=== PATIENT | female | born 1970 | race Caucasian/White ===

== ENCOUNTER 2017-04-16 15:51 | Emergency (ER) | payer MEDICAID ==
[~2017-04-16] VITALS: Ht 152.4 cm; Wt 64.9 kg
[~2017-04-16 15:51] MED LIST: BACTRIM DS 8001 TAB PO; KLONOPIN2 MG PO; MEDROL 4MG. DOSE4 MG PO; MOTRIN 400MG.400 MG PO; NORFLEX100 MG PO; VOLTAREN75 MG PO; ZOLOFT25 MG PO
--- OUTSIDE RECORDS SUMMARY | 2017-04-16 16:07 | External Medical Summary Rpt | CCD ---
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 CI CY W D LI LL QU C ID HY 00 02 03 0 60 15 ME [address] 18 -0 -3 0. D 13 NO ti OX 50 5- 0- 00 CA 60 LD ve YZ 67 20 20 0 RE 91 IN 40 15 15 RI E 5 PH CH PA AR AR M MA D 25 CY W MG LL C CA P AC 00 10 03 0 35 5 ME 11 AR Ac ID 90 -1 -2 50 D 12 NO ti 47 0- 6- .0 CA 28 LD ve GO 72 20 20 00 RE 52 NE 71 14 15 RI 4 PH CH AN AR AR TA MA D CI CY W D LI LL QU C ID ID 59 03 03 0 85 30 ME 11 AR Ac OA 31 -2 -2 .0 D 12 NO ti IR 00 5- 5- 00 CA 07 LD ve 57 20 20 RE 20 HF 92 15 15 RI A 2 PH CH 90 AR AR MA D MC CY W G IN LL [place] C LE R AC 00 10 03 0 35 5 ME 11 AR Ac ID 90 -1 -2 50 D 11 NO ti 47 0- 3- .0 CA 23 LD ve GO 72 20 20 00 RE 04 NE 71 14 15 RI 4 PH CH AN AR AR TA MA D CI CY W D LI LL QU C ID GA 53 12 03 0 60 30 ME 11 AR Ac BA 74 -1 -2 0. D 09 NO ti PE 60 3- 1- 00 CA 96 LD ve NT 10 20 20 0 RE 16 IN 10 14 15 RI 5 PH CH 10 AR AR 0 MA D MG CY W CA LL PS C UL E LO 45 02 03 0 30 30 ME 11 AR Ac RA 80 -1 -1 0. D 09 NO ti TA 20 9- 9- 00 CA 82 LD ve DI 65 20 20 0 RE 79 NE 08 15 15 RI 7 PH CH 10 AR AR MA D MG CY W TA LL BL C ET BU 00 09 03 0 90 30 ME 11 AR Ac SP 59 -1 -1 0. D 09 NO ti IR 10 1- 9- 00 CA 82 LD ve ON 71 20 20 0 RE 78 E 81 14 15 RI HC 8 PH CH L AR AR 15 MA D CY W MG LL TA C BL ET ID 00 02 03 0 30 5 ME 11 AR Ac OM 59 -1 -1 0. D 09 NO ti ET 15 1- 8- 00 CA 96 LD ve B[place]O 30 20 20 0 RE 15 ZI 71 15 15 RI NE 0 PH CH AR AR 25 MA D CY W MG LL TA C BL ET OM 68 11 03 0 30 30 ME 11 AR Ac EP 46 -0 -1 0. D 08 NO ti RA 20 1- 6- 00 CA 90 LD ve ZO 23 20 20 0 RE 87 LE 11 14 15 RI [address] AR AR MA D 20 CY W MG LL C CA PS UL E QU 16 03 03 0 30 30 ME 11 AR Ac ET 72 -1 -1 0. D 08 NO ti IA 90 2- 6- 00 CA 21 LD ve PI 14 20 20 0 RE 27 NE 81 15 15 RI 7 PH CH FU AR AR MA MA D RA CY W TE LL 20 C 0 MG TA B HY 00 02 03 0 60 15 ME [address] 18 -0 -1 0. D 08 NO ti OX 50 5- 4- 00 CA 90 LD ve YZ 67 20 20 0 RE 85 IN 40 15 15 RI E 5 PH CH PA AR AR M MA D 25 CY W MG LL C CA P QU 16 03 03 0 50 5 ME 11 AR Ac ET 72 -1 -1 .0 D 08 NO ti IA 90 2- 2- 00 CA 21 LD ve PI 14 20 20 RE 24 NE 61 15 15 RI 7 PH CH FU AR AR MA MA D RA CY W TE LL 50 C MG TA B VE 68 02 03 0 90 30 ME 11 AR Ac NL 38 -1 -1 0. D 07 NO ti AF 20 2- 2- 00 CA 65 LD ve AX 02 20 20 0 RE 19 IN 10 15 15 RI E 1 PH CH HC AR AR L MA D 75 CY W MG LL C TA BL ET QU 16 02 03 0 30 30 ME 11 AR Ac ET 72 -1 -0 0. D 06 NO ti IA 90 2- 9- 00 CA 48 LD ve PI 14 20 20 0 RE 56 NE 70 15 15 RI 1 PH CH FU AR AR MA MA D RA CY W TE LL 10 C 0 MG TA B ID 23 09 03 0 90 30 ME 11 AR Ac OP 15 -1 -0 0. D 05 NO ti RA 50 1- 9- 00 CA 74 LD ve NO 11 20 20 0 RE 49 LO 11 14 15 RI L 0 PH CH 20 AR AR MA D MG CY W TA LL BL C ET ID 00 09 03 0 60 30 ME 11 AR Ac AZ 37 -1 -0 0. D 05 NO ti OS 81 1- 7- 00 CA 59 LD ve IN 10 20 20 0 RE 21 1 10 14 15 RI 1 PH CH MG AR AR MA D CA CY W PS UL LL E C AC 00 10 03 0 35 5 ME 11 AR Ac ID 90 -1 -0 50 D 06 NO ti 47 0- 7- .0 CA 08 LD ve GO 72 20 20 00 RE 70 NE 71 14 15 RI 4 PH CH AN AR AR TA MA D CI CY W D LI LL QU C ID IB 55 01 02 0 30 15 ME 11 AR Ac UP 11 -0 -2 0. D 03 NO ti RO 10 6- 7- 00 CA 50 LD ve FE 68 20 20 0 RE 61 N 20 15 15 RI 40 5 PH CH 0 AR AR MG MA D CY W TA BL LL ET C HY 00 02 02 0 60 15 ME [address] 18 -0 -2 0. D 03 NO ti OX 50 5- 7- 00 CA 50 LD ve YZ 67 20 20 0 RE 60 IN 40 15 15 RI E 5 PH CH PA AR AR M MA D 25 CY W MG LL C CA P GA 53 12 02 0 60 30 ME 11 AR Ac BA 74 -1 -2 0. D 02 NO ti PE 60 3- 5- 00 CA 15 LD ve NT 10 20 20 0 RE 10 IN 10 14 15 RI 5 PH CH 10 AR AR 0 MA D MG CY W CA LL PS C UL E DI 00 02 02 0 30 5 ME 11 AR Ac PH 60 -2 -2 0. D 00 NO ti EN 33 0- 0- 00 CA 89 LD ve HY 33 20 [address] 93 15 15 RI AM 2 PH CH IN AR AR E MA D 25 CY W MG LL C CA PS UL E OM 55 11 02 0 30 30 ME 11 AR Ac EP 11 -0 -1 0. D 00 NO ti RA 10 1- 9- 00 CA 73 LD ve ZO 15 20 20 0 RE 80 LE 81 14 15 RI [address] AR AR MA D 20 CY W MG LL C CA PS UL E LO 45 02 02 0 30 30 ME 11 AR Ac RA 80 -1 -1 0. D 00 NO ti TA 20 9- 9- 00 CA 59 LD ve DI 65 20 20 0 RE 13 NE 08 15 15 RI 7 PH CH 10 AR AR MA D MG CY W TA LL BL C ET BU 00 09 02 0 90 30 ME 10 AR Ac SP 59 -1 -1 0. D 99 NO ti IR 10 1- 7- 00 CA 74 LD ve ON 71 20 20 0 RE 44 E 81 14 15 RI HC 8 PH CH L AR AR 15 MA D CY W MG LL TA C BL ET QU 16 02 02 0 30 30 ME 10 AR Ac ET 72 -1 -1 0. D 98 NO ti IA 90 2- 3- 00 CA 73 LD ve PI 14 20 20 0 RE 30 NE 70 15 15 RI 1 PH CH FU AR AR MA MA D RA CY W TE LL 10 C 0 MG TA B HY 00 02 02 0 60 15 ME [address] 18 -0 -1 0. D 96 NO ti OX 50 5- 2- 00 CA 54 LD ve YZ 67 20 20 0 RE 84 IN 40 15 15 RI E 5 PH CH PA AR AR M MA D 25 CY W MG LL C CA P VE 68 02 02 0 90 30 ME 10 AR Ac NL 38 -1 -1 0. D 98 NO ti AF 20 2- 2- 00 CA 73 LD ve AX 02 20 20 0 RE 28 IN 10 15 15 RI E 1 PH CH HC AR AR L MA D 75 CY W MG LL C TA BL ET VE 68 12 02 0 60 30 ME 10 AR Ac NL 38 -1 -1 0. D 97 NO ti AF 20 1- 1- 00 CA 81 LD ve AX 02 20 20 0 RE 80 IN 10 14 15 RI E 1 PH CH HC AR AR L MA D 75 CY W MG LL C TA BL ET ID 00 02 02 0 30 5 ME 10 AR Ac OM 59 -1 -1 0. D 98 NO ti ET 15 1- 1- 00 CA 33 LD ve [place] 30 20 20 0 RE 56 ZI 71 15 15 RI NE 0 PH CH AR AR 25 MA D CY W MG LL TA C BL ET AZ 00 02 02 0 60 5 ME 10 AR Ac IT 78 -1 -1 .0 D 98 NO ti HR 11 1- 1- 00 CA 30 LD ve OM 49 20 20 RE 28 YC 66 15 15 RI IN 8 PH CH AR AR 25 MA D 0 CY W MG LL TA C BL ET AC 00 10 02 0 35 5 ME 10 AR Ac ID 90 -1 -0 50 D 97 NO ti 47 0- 9- .0 CA 60 LD ve GO 72 20 20 00 RE 73 NE 71 14 15 RI 4 PH CH AN AR AR TA MA D CI CY W D LI LL QU C ID ID 23 09 02 0 90 30 ME 10 AR Ac OP 15 -1 -0 0. D 96 NO ti RA 50 1- 7- 00 CA 76 LD ve NO 11 20 20 0 RE 81 LO 11 14 15 RI L 0 PH CH 20 AR AR MA D MG CY W TA LL BL C ET ID 00 09 02 0 60 30 ME 10 AR Ac AZ 37 -1 -0 0. D 96 NO ti OS 81 1- 6- 00 CA 41 LD ve IN 10 20 20 0 RE 95 1 10 14 15 RI 1 PH CH MG AR AR MA D CA CY W PS UL LL E C HY 00 02 02 0 30 15 ME [address] 18 -0 -0 0. D 95 NO ti OX 50 3- 3- 00 CA 91 LD ve YZ 67 20 20 0 RE 10 IN 40 15 15 RI E 5 PH CH PA AR AR M MA D 25 CY W MG LL C CA P AC 00 10 01 0 35 5 ME 10 AR Ac ID 90 -1 -3 50 D 95 NO ti 47 0- 0- .0 CA 08 LD ve GO 72 20 20 00 RE 39 NE 71 14 15 RI 4 PH CH AN AR AR TA MA D CI CY W D LI LL QU C ID RO 00 01 01 0 47 30 ME 10 AR Ac BA 90 -2 -2 30 D 94 NO ti FE 40 9- 9- .0 CA 19 LD ve N 06 20 20 00 RE 82 10 11 15 15 RI 0 6 PH CH MG AR AR /5 MA D CY W ML LL SY C RU P GA 53 12 01 0 60 30 ME 10 AR Ac BA 74 -1 -2 0. D 93 NO ti PE 60 3- 7- 00 CA 27 LD ve NT 10 20 20 0 RE 00 IN 10 14 15 RI 5 PH CH 10 AR AR 0 MA D MG CY W CA LL PS C UL E OM 55 11 01 0 30 30 ME 10 AR Ac EP 11 -0 -2 0. D 92 NO ti RA 10 1- 6- 00 CA 53 LD ve ZO 15 20 20 0 RE 64 LE 81 14 15 RI [address] AR AR MA D 20 CY W MG LL C CA PS UL E HY 00 10 01 0 30 10 ME [address] 18 -1 -2 0. D 93 NO ti OX 50 5- 6- 00 CA 32 LD ve YZ 67 20 20 0 RE 66 IN 40 14 15 RI E 5 PH CH PA AR AR M MA D 25 CY W MG LL C CA P AC 00 10 01 0 35 5 ME 10 AR Ac ID 90 -1 -2 50 D 92 NO ti 47 0- 2- .0 CA 14 LD ve GO 72 20 20 00 RE 07 NE 71 14 15 RI 4 PH CH AN AR AR TA MA D CI CY W D LI LL QU C ID AC 00 10 01 0 35 5 ME 10 AR Ac ID 90 -1 -1 50 D 90 NO ti 47 0- 9- .0 CA 94 LD ve GO 72 20 20 00 RE 73 NE 71 14 15 RI 4 PH CH AN AR AR TA MA D CI CY W D LI LL QU C ID BU 00 09 01 0 90 30 ME 10 AR Ac SP 59 -1 -1 0. D 90 NO ti IR 10 1- 9- 00 CA 44 LD ve ON 71 20 20 0 RE 95 E 81 14 15 RI HC 8 PH CH L AR AR 15 MA D CY W MG LL TA C BL ET VE 68 12 01 0 60 30 ME 10 AR Ac NL 38 -1 -1 0. D 89 NO ti AF 20 1- 4- 00 CA 50 LD ve AX 02 20 20 0 RE 56 IN 10 14 15 RI E 1 PH CH HC AR AR L MA D 75 CY W MG LL C TA BL ET AC 00 10 01 0 35 5 ME 10 AR Ac ID 90 -1 -0 50 D 88 NO ti 47 0- 9- .0 CA 42 LD ve GO 72 20 20 00 RE 51 NE 71 14 15 RI 4 PH CH AN AR AR TA MA D CI CY W D LI LL QU C ID ID 00 09 01 0 60 30 ME 10 AR Ac AZ 37 -1 -0 0. D 87 NO ti OS 81 1- 8- 00 CA 33 LD ve IN 10 20 20 0 RE 95 1 10 14 15 RI 1 PH CH MG AR AR MA D CA CY W PS UL LL E C IB 55 01 01 0 30 15 ME 10 AR Ac UP 11 -0 -0 0. D 87 NO ti RO 10 6- 6- 00 CA 16 LD ve FE 68 20 20 0 RE 75 N 20 15 15 RI 40 5 PH CH 0 AR AR MG MA D CY W TA BL LL ET C HY 00 10 01 0 30 10 ME [address] 18 -1 -0 0. D 87 NO ti OX 50 5- 6- 00 CA 08 LD ve YZ 67 20 20 0 RE 74 IN 40 14 15 RI E 5 PH CH PA AR AR M MA D 25 CY W MG LL C CA P ID 23 09 01 0 90 30 ME 10 AR Ac OP 15 -1 -0 0. D 85 NO ti RA 50 1- 2- 00 CA 35 LD ve NO 11 20 20 0 RE 98 LO 11 14 15 RI L 0 PH CH 20 AR AR MA D MG CY W TA LL BL C ET HY 00 10 12 0 30 15 ME [address] 18 -1 -2 0. D 84 NO ti OX 50 5- 9- 00 CA 57 LD ve YZ 67 20 20 0 RE 43 IN 40 14 14 RI E 5 PH CH PA AR AR M MA D 25 CY W MG LL C CA P OM 55 11 12 0 30 30 ME 10 AR Ac EP 11 -0 -2 0. D 83 NO ti RA 10 1- 7- 00 CA 70 LD ve ZO 15 20 20 0 RE 48 LE 81 14 14 RI [address] AR AR MA D 20 CY W MG LL C CA PS UL E BU 00 09 12 0 90 30 ME 10 AR Ac SP 59 -1 -2 0. D 81 NO ti IR 10 1- 0- 00 CA 70 LD ve ON 71 20 20 0 RE 90 E 81 14 14 RI HC 8 PH CH L AR AR 15 MA D CY W MG LL TA C BL ET MU 45 12 12 0 22 14 ME 10 AR Ac PI 80 -1 -1 0. D 81 NO ti RO 20 8- 8- 00 CA 53 LD ve CI 11 20 20 0 RE 60 N 22 14 14 RI 2% 2 PH CH AR AR OI MA D NT CY W ME NT LL C VE 68 12 12 0 60 30 ME 10 AR Ac NL 38 -1 -1 0. D 79 NO ti AF 20 1- 7- 00 CA 05 LD ve AX 02 20 20 0 RE 69 IN 10 14 14 RI E 1 PH CH HC AR AR L MA D 75 CY W MG LL C TA BL ET SE 59 12 12 0 80 8 ME 10 AR Ac RT 76 -1 -1 .0 D 79 NO ti RA 24 1- 7- 00 CA 05 LD ve LI 96 20 20 RE 67 NE 00 14 14 RI 1 PH CH HC AR AR L MA D 25 CY W MG LL C TA BL ET GA 53 12 12 0 60 30 ME 10 AR Ac BA 74 -1 -1 0. D 80 NO ti PE 60 3- 3- 00 CA 15 LD ve NT 10 20 20 0 RE 25 IN 10 14 14 RI 5 PH CH 10 AR AR 0 MA D MG CY W CA LL PS C UL E GA 53 11 12 0 30 30 ME 10 AR Ac BA 74 -1 -1 0. D 78 NO ti PE 60 5- 2- 00 CA 87 LD ve NT 10 20 20 0 RE 89 IN 10 14 14 RI 5 PH CH 10 AR AR 0 MA D MG CY W CA LL PS C UL E ID 00 09 12 0 60 30 ME 10 AR Ac AZ 09 -1 -1 0. D 79 NO ti OS 34 1- 1- 00 CA 01 LD ve IN 06 20 20 0 RE 69 1 70 14 14 RI 1 PH CH MG AR AR MA D CA CY W PS UL LL E C SE 59 12 12 0 70 7 ME 10 AR Ac RT 76 -1 -1 .0 D 79 NO ti RA 24 1- 1- 00 CA 05 LD ve LI 90 20 20 RE 65 NE 00 14 14 RI 5 PH CH HC AR AR L MA D 50 CY W MG LL C TA BL ET VE 68 12 12 0 70 7 ME 10 AR Ac NL 38 -1 -1 .0 D 79 NO ti AF 20 1- 1- 00 CA 05 LD ve AX 02 20 20 RE 68 IN 10 14 14 RI E 1 PH CH HC AR AR L MA D 75 CY W MG LL C TA BL ET AC 00 10 12 0 35 5 ME 10 AR Ac ID 90 -1 -0 50 D 77 NO ti 47 0- 8- .0 CA 98 LD ve GO 72 20 20 00 RE 62 NE 71 14 14 RI 4 PH CH AN AR AR TA MA D CI CY W D LI LL QU C ID HY 00 10 12 0 30 15 ME [address] 18 -1 -0 0. D 77 NO ti OX 50 5- 5- 00 CA 68 LD ve YZ 67 20 20 0 RE 30 IN 40 14 14 RI E 5 PH CH PA AR AR M MA D 25 CY W MG LL C CA P AM 00 10 12 0 20 20 ME 10 AR Ac IT 78 -1 -0 0. D 73 NO ti RI 11 4- 4- 00 CA 87 LD ve PT 48 20 20 0 RE 48 YL 71 14 14 RI IN 0 PH CH E AR AR HC MA D L CY W 25 LL MG C TA B SE 59 09 12 0 80 8 ME 10 AR Ac RT 76 -1 -0 .0 D 76 NO ti RA 24 0- 3- 00 CA 20 LD ve LI 91 20 20 RE 07 NE 00 14 14 RI 5 PH CH HC AR AR L MA D 10 CY W 0 MG LL C TA BL ET ID 23 09 12 0 90 30 ME 10 AR Ac OP 15 -1 -0 0. D 76 NO ti RA 50 1- 3- 00 CA 20 LD ve NO 11 20 20 0 RE 08 LO 11 14 14 RI L 0 PH CH 20 AR AR MA D MG CY W TA LL BL C ET AC 00 10 12 0 35 5 ME 10 AR Ac ID 90 -1 -0 50 D 75 NO ti 47 0- 1- .0 CA 84 LD ve GO 72 20 20 00 RE 99 NE 71 14 14 RI 4 PH CH AN AR AR TA MA D CI CY W D LI LL QU C ID OM 55 11 11 0 30 30 ME 10 AR Ac EP 11 -0 -2 0. D 74 NO ti RA 10 1- 8- 00 CA 67 LD ve ZO 15 20 20 0 RE 65 LE 81 14 14 RI [address] AR AR MA D 20 CY W MG LL C CA PS UL E AC 00 10 11 0 35 5 ME 10 AR Ac ID 90 -1 -2 50 D 73 NO ti 47 0- 4- .0 CA 88 LD ve GO 72 20 20 00 RE 13 NE 71 14 14 RI 4 PH CH AN AR AR TA MA D CI CY W D LI LL QU C ID BU 00 09 11 0 90 30 ME 10 AR Ac SP 59 -1 -2 0. D 72 NO ti IR 10 1- 1- 00 CA 78 LD ve ON 71 20 20 0 RE 34 E 81 14 14 RI HC 8 PH CH L AR AR 15 MA D CY W MG LL TA C BL ET HY 00 10 11 0 30 15 ME [address] 18 -1 -2 0. D 73 NO ti OX 50 5- 0- 00 CA 02 LD ve YZ 67 20 20 0 RE 01 IN 40 14 14 RI E 5 PH CH PA AR AR M MA D 25 CY W MG LL C CA P GA 53 11 11 0 30 30 ME 10 AR Ac BA 74 -1 -1 0. D 71 NO ti PE 60 5- 5- 00 CA 61 LD ve NT 10 20 20 0 RE 65 IN 10 14 14 RI 5 PH CH 10 AR AR 0 MA D MG CY W CA LL PS C UL E AC 00 10 11 0 35 5 ME 10 AR Ac ID 90 -1 -1 50 D 69 NO ti 47 0- 2- .0 CA 97 LD ve GO 72 20 20 00 RE 22 NE 71 14 14 RI 4 PH CH AN AR AR TA MA D CI CY W D LI LL QU C ID AC 00 10 11 0 35 5 ME 10 AR Ac ID 90 -1 -1 50 D 69 NO ti 47 0- 0- .0 CA 33 LD ve GO 72 20 20 00 RE 12 NE 71 14 14 RI 4 PH CH AN AR AR TA MA D CI CY W D LI LL QU C ID AM 00 10 11 0 30 30 ME 10 AR Ac IT 78 -1 -1 0. D 69 NO ti RI 11 4- 0- 00 CA 33 LD ve PT 48 20 20 0 RE 58 YL 71 14 14 RI IN 0 PH CH E AR AR HC MA D L CY W 25 LL MG C TA B AC 00 10 11 0 35 5 ME 10 AR Ac ID 90 -1 -0 50 D 67 NO ti 47 0- 3- .0 CA 04 LD ve GO 72 20 20 00 RE 13 NE 71 14 14 RI 4 PH CH AN AR AR TA MA D CI CY W D LI LL QU C ID ID 23 09 11 0 90 30 ME 10 AR Ac OP 15 -1 -0 0. D 66 NO ti RA 50 1- 3- 00 CA 47 LD ve NO 11 20 20 0 RE 82 LO 11 14 14 RI L 0 PH CH 20 AR AR MA D MG CY W TA LL BL C ET ID 00 09 11 0 60 30 ME 10 AR Ac AZ 09 -1 -0 0. D 66 NO ti OS 34 1- 3- 00 CA 47 LD ve IN 06 20 20 0 RE 81 1 70 14 14 RI 1 PH CH MG AR AR MA D CA CY W PS UL LL E C SE 59 09 11 0 30 30 ME 10 AR Ac RT 76 -1 -0 0. D 66 NO ti RA 24 0- 3- 00 CA 47 LD ve LI 91 20 20 0 RE 80 NE 00 14 14 RI 5 PH CH HC AR AR L MA D 10 CY W 0 MG LL C TA BL ET OM 55 11 11 0 30 30 ME 10 AR Ac EP 11 -0 -0 0. D 66 NO ti RA 10 1- 1- 00 CA 84 LD ve ZO 15 20 20 0 RE 99 LE 81 14 14 RI [address] AR AR MA D 20 CY W MG LL C CA PS UL E HY 00 10 10 0 30 15 ME [address] 18 -1 -2 0. D 65 NO ti OX 50 5- 8- 00 CA 22 LD ve YZ 67 20 20 0 RE 11 IN 40 14 14 RI E 5 PH CH PA AR AR M MA D 25 CY W MG LL C CA P BU 00 09 10 0 90 30 ME 10 AR Ac SP 59 -1 -2 0. D 63 NO ti IR 10 1- 3- 00 CA 67 LD ve ON 71 20 20 0 RE 41 E 81 14 14 RI HC 8 PH CH L AR AR 15 MA D CY W MG LL TA C BL ET AC 00 10 10 0 35 5 ME 10 AR Ac ID 90 -1 -1 50 D 62 NO ti 47 0- 6- .0 CA 02 LD ve GO 72 20 20 00 RE 45 NE 71 14 14 RI 4 PH CH AN AR AR TA MA D CI CY W D LI LL QU C ID 00 10 10 0 30 15 ME 10 AR Ac 18 -1 -1 0. D 61 NO ti 50 5- 5- 00 CA 48 LD ve 61 20 20 0 RE 68 30 14 14 RI 5 PH CH AR AR MA D CY W LL C AM 00 10 10 0 30 30 ME 10 AR Ac IT 78 -1 -1 0. D 61 NO ti RI 11 4- 4- 00 CA 04 LD ve PT 48 20 20 0 RE 60 YL 71 14 14 RI IN 0 PH CH E AR AR HC MA D L CY W 25 LL MG C TA B AC 00 10 10 0 35 14 ME 10 AR Ac ID 90 -1 -1 50 D 60 NO ti 47 0- 0- .0 CA 10 LD ve GO 72 20 20 00 RE 02 NE 71 14 14 RI 4 PH CH AN AR AR TA MA D CI CY W D LI LL QU C ID ID 00 09 10 0 60 30 ME 10 AR Ac AZ 09 -1 -0 0. D 58 NO ti OS 34 1- 6- 00 CA 44 LD ve IN 06 20 20 0 RE 89 1 70 14 14 RI 1 PH CH MG AR AR MA D CA CY W PS UL LL E C ID 23 09 10 0 90 30 ME 10 AR Ac OP 15 -1 -0 0. D 58 NO ti RA 50 1- 6- 00 CA 44 LD ve NO 11 20 20 0 RE 91 LO 11 14 14 RI L 0 PH CH 20 AR AR MA D MG CY W TA LL BL C ET SE 59 09 10 0 30 30 ME 10 AR Ac RT 76 -1 -0 0. D 58 NO ti RA 24 0- 6- 00 CA 44 LD ve LI 91 20 20 0 RE 88 NE 00 14 14 RI 5 PH CH HC AR AR L MA D 10 CY W 0 MG LL C TA BL ET 00 10 10 0 28 7 SO 38 HU Ac 14 -2 -2 .0 PE 81 NT ti 31 6- 6- 00 RS 09 ER ve 47 20 20 51 11 11 FA NA 0 CA NC LY Y C DR GILLIS AZ 00 10 10 0 6. 5 SO 38 HU Ac IT 78 -2 -2 00 PE 81 NT ti HR 11 6- 6- 0 RS 10 ER ve OM 94 20 20 YC 13 11 11 FA NA IN 3 CA NC LY Y [address] MG UG TA BL ET ID 60 10 10 0 12 6 SO 38 HU Ac OM 43 -2 -2 0. PE 81 NT ti ET 20 6- 6- 00 RS 11 ER ve [place] 60 20 20 0 ZI 41 11 11 FA NA NE 6 CA NC -D LY Y M C SY DR GOETZ UG P 59 10 10 0 8. 15 SO 38 HU Ac 31 -2 -2 50 PE 81 NT ti 00 6- 6- 0 RS 12 ER ve 57 20 20 92 11 11 FA NA 0 CA NC LY Y C UG CI 65 09 10 3 30 30 SO 38 BE Ac TA 16 -1 -2 .0 PE 44 SS ti LO 20 9- 1- 00 RS 78 ON ve ID 05 20 20 AM [address] 0 CA EP HB LY HE R N 40 DR Dwayne UG MG TA BL ET AL 59 10 10 2 42 14 SO 38 BE Ac ID 76 -2 -2 .0 PE 77 SS ti AZ 23 1- 1- 00 RS 15 ON ve OL 72 20 20 AM [address] 1 3 CA EP LY HE MG N DR Dwayne TA UG BL ET AL 59 09 09 0 90 30 SO 38 BE Ac ID 76 -1 -1 .0 PE 44 SS ti AZ 23 9- 9- 00 RS 77 ON ve OL 72 20 20 AM [address] 3 CA EP 0. LY HE [address] Rice UG TA BL ET CI 65 09 09 3 30 30 SO 38 BE Ac TA 16 -1 -1 .0 PE 44 SS ti LO 20 9- 9- 00 RS 78 ON ve ID 05 20 20 AM [address] 0 CA EP HB LY HE R N 40 [address] Dwayen UG MG TA BL ET AL 59 08 08 0 90 30 SO 38 BE Ac ID 76 -1 -1 .0 PE 14 SS ti AZ 23 6- 8- 00 RS 16 ON ve OL 72 20 20 AM [address] 3 CA EP 0. LY HE [address] Rice UG TA BL ET 00 08 08 0 6. 3 SO 38 SA Ac 14 -1 -1 00 PE 11 MA ti 31 2- 2- 0 RS 72 DI ve 47 20 20 70 11 11 FA 1 CA JA LY YA DR UG AL 59 07 07 0 90 30 SO 37 BE Ac ID 76 -2 -2 .0 PE 91 SS ti AZ 23 0- 0- 00 RS 43 ON ve OL 72 20 20 AM [address] 3 CA EP 0. LY HE [address] Rice UG TA BL ET CI 60 03 06 2 30 30 HO 10 BE Ac TA 50 -0 -2 .0 PK 15 SS ti LO 52 2- 0- 00 IN 50 ON ve ID 52 20 20 S 0 AM [address] 1 UG EP HB HE R CO N 40 MP A AN MG Y IN TA C BL ET AL 00 06 06 0 90 30 SO 37 BE Ac ID 78 -2 -2 .0 PE 66 SS ti AZ 11 0- 0- 00 RS 02 ON ve OL 07 20 20 AM [address] 0 CA EP 0. LY HE [address] Rice UG TA BL ET AL 00 05 05 0 90 30 SO 37 BE Ac ID 78 -1 -1 .0 PE 34 SS ti AZ 11 3- 9- 00 RS 08 ON ve OL 07 20 20 AM [address] 0 CA EP 0. LY HE [address] Rice UG TA BL ET CI 60 03 04 2 30 30 HO 10 BE Ac TA 50 -0 -2 .0 PK 15 SS ti LO 52 2- 3- 00 IN 50 ON ve ID 52 20 20 S 0 AM [address] 1 UG EP HB HE R CO N 40 MP A AN MG Y IN TA C BL ET AL 00 04 04 60 30 HO 10 MC Ac ID 60 -2 -2 .0 PK 16 KE ti AZ 32 3- 3- 00 IN 55 CA ve OL 12 20 20 S 3 E AM [address] JR 2 UG 0. WI 5 CO LL MG MP IA AN M TA Y F BL IN ET C AL 00 03 03 60 30 HO 10 BE Ac ID 60 -2 -2 .0 PK 16 SS ti AZ 32 3- 3- 00 IN 00 ON ve OL 12 20 20 S 9 AM [address] 2 UG EP 0. HE 5 CO N MG MP A AN TA Y BL IN ET C CI 60 03 03 2 30 30 HO 10 BE Ac TA 50 -0 -0 .0 PK 15 SS ti LO 52 2- 2- 00 IN 50 ON ve ID 52 20 20 S 0 AM [address] 1 UG EP HB HE R CO N 40 MP A AN MG Y IN TA C BL ET CL 00 03 03 60 30 HO 10 BE Ac ON 60 -0 -0 .0 PK 15 SS ti AZ 32 2- 2- 00 IN 50 ON ve EP 94 20 20 S 1 AM [address] 1 UG EP 0. HE 5 CO N MG MP A AN TA Y BL IN ET C CY 00 02 02 3 90 30 HO 10 BE Ac CL 60 -0 -0 .0 PK 14 SS ti OB 33 4- 4- 00 IN 83 ON ve EN 07 20 20 S 6 ZA [address] ID 1 UG EP IN HE E CO N 5 MP A MG AN Y TA IN BL C ET CI 60 01 01 30 30 HO 10 BE Ac TA 50 -2 -2 .0 PK 14 SS ti LO 52 8- 8- 00 IN 66 ON ve ID 52 20 20 S 0 AM [address] 1 UG EP HB HE R CO N 40 MP A AN MG Y IN TA C BL ET CL 00 01 01 60 30 HO 10 BE Ac ON 60 -2 -2 .0 PK 14 SS ti AZ 32 8- 8- 00 IN 66 ON ve EP 94 20 20 S 1 AM [address] 1 UG EP 0. HE 5 CO N MG MP A AN TA Y BL IN ET C CI 60 12 12 30 30 HO 10 BE Ac TA 50 -2 -2 .0 PK 13 SS ti LO 52 9- 9- 00 IN 94 ON ve ID 52 20 20 S 8 AM [address] 1 UG EP HB HE R CO N 40 MP A AN MG Y IN TA C BL ET CL 00 12 12 60 30 HO 10 BE Ac ON 60 -2 -2 .0 PK 13 SS ti AZ 32 9- 9- 00 IN 94 ON ve EP 94 20 20 S 9 AM [address] 1 UG EP 0. HE 5 CO N MG MP A AN TA Y BL IN ET C 00 12 12 30 5 HO 10 [place] Ac 59 -1 -1 .0 PK 13 RP ti 10 4- 4- 00 IN 59 EL ve 34 20 20 S [address] GE 5 UG RA LD CO R MP AN Y IN C HY 00 12 12 45 15 HO [address] 60 -1 -1 .0 PK 13 SS ti OC 33 0- 0- 00 IN 51 ON ve OD 89 20 20 S 5 ON [address] E- 1 UG EP IB HE UP CO N RO MP A FE AN N Y 7. IN 5- C 20 0 00 12 12 30 7 HO 10 [place] Ac 59 -0 -0 .0 PK 13 RP ti 10 3- 3- 00 IN 28 EL ve 34 20 20 S [address] GE 5 UG RA LD CO R MP AN Y IN C AC 00 12 12 0 30 8 CL 22 [place] Ac ET 40 -0 -0 .0 IN 79 RP ti AM 60 2- 2- 00 IC 04 EL ve IN 48 20 20 OP 40 10 10 PH GE HE 1 AR RA N- MA LD CO CY R D #3 LL C TA BL ET CI 60 06 11 5 30 30 HO 10 BE Ac TA 50 -2 -3 .0 PK 08 SS ti LO 52 8- 0- 00 IN 52 ON ve ID 52 20 20 S 2 AM [address] 1 UG EP HB HE R CO N 40 MP A AN MG Y IN TA C BL ET CL 00 11 11 60 30 HO 10 BE Ac ON 60 -3 -3 .0 PK 13 SS ti AZ 32 0- 0- 00 IN 14 ON ve EP 94 20 20 S 7 AM [address] 1 UG EP 0. HE 5 CO N MG MP A AN TA Y BL IN ET C CY 00 11 11 30 10 HO 10 BE Ac CL 60 -1 -1 .0 PK 12 SS ti OB 33 7- 7- 00 IN 80 ON ve EN 07 20 20 S 7 ZA [address] CRUZ ID 1 UG EP IN HE E CO N 5 MP A MG AN Y TA IN BL C ET 00 11 11 30 5 HO 10 BE Ac 60 -1 -1 .0 PK 12 SS ti 35 7- 7- 00 IN 80 ON ve 46 20 20 S [address] 8 UG EP HE CO N MP A AN Y IN C CY 00 11 11 30 10 HO 10 HU Ac CL 60 -0 -0 .0 PK 12 NT ti OB 33 3- 3- 00 IN 20 ER ve EN 07 20 20 S 0 ZA [address] TORIBIO ID 1 UG NC IN Y E CO C 5 MP MG AN Y TA IN BL C ET TR 65 11 11 30 7 HO 10 HU Ac AM 16 -0 -0 .0 PK 12 NT ti AD 20 3- 3- 00 IN 20 ER ve OL 62 20 20 S [address] ROONEY HC 1 UG NC L Y 50 CO C MP MG AN Y TA IN BL C ET CI 60 06 10 5 30 30 HO 10 BE Ac TA 50 -2 -2 .0 PK 08 SS ti LO 52 8- 8- 00 IN 52 ON ve ID 52 20 20 S 2 AM [address] 1 UG EP HB HE R CO N 40 MP A AN MG Y IN TA C BL ET CL 00 10 10 60 30 HO 10 BE Ac ON 60 -2 -2 .0 PK 12 SS ti AZ 32 8- 8- 00 IN 00 ON ve EP 94 20 20 S 7 AM [address] 1 UG EP 0. HE 5 CO N MG MP A AN TA Y BL IN ET C ME 68 10 10 3 30 30 HO 10 MC Ac LO 38 -1 -1 .0 PK 11 KE ti XI 20 4- 4- 00 IN 55 CA ve CA 05 20 20 S 0 E M [address] CAMPOS 7. 5 UG 5 WI MG CO LL MP IA TA AN M BL Y F ET IN C CI 60 06 09 5 30 30 HO 10 BE Ac TA 50 -2 -2 .0 PK 08 SS ti LO 52 8- 8- 00 IN 52 ON ve ID 52 20 20 S 2 AM [address] 1 UG EP HB HE R CO N 40 MP A AN MG Y IN TA C BL ET CL 00 09 09 60 30 HO 10 BE Ac ON 60 -2 -2 .0 PK 11 SS ti AZ 32 8- 8- 00 IN 04 ON ve EP 94 20 20 S 7 AM [address] 1 UG EP 0. HE 5 CO N MG MP A AN TA Y BL IN ET C CI 60 06 08 5 30 30 HO 10 BE Ac TA 50 -2 -2 .0 PK 08 SS ti LO 52 8- 7- 00 IN 52 ON ve ID 52 20 20 S 2 AM [address] 1 UG EP HB HE R CO N 40 MP A AN MG Y IN TA C BL ET CL 00 08 08 60 30 HO 10 BE Ac ON 60 -2 -2 .0 PK 10 SS ti AZ 32 7- 7- 00 IN 15 ON ve EP 94 20 20 S 0 AM [address] 1 UG EP 0. HE 5 CO N MG MP A AN TA Y BL IN ET C CI 60 06 07 5 30 30 HO 10 BE Ac TA 50 -2 -3 .0 PK 08 SS ti LO 52 8- 0- 00 IN 52 ON ve ID 52 20 20 S 2 AM [address] 1 UG EP HB HE R CO N 40 MP A AN MG Y IN TA C BL ET CL 00 07 07 60 30 HO 10 BE Ac ON 22 -3 -3 .0 PK 09 SS ti AZ 83 0- 0- 00 IN 39 ON ve EP 00 20 20 S 6 AM [address] 0 UG EP 0. HE 5 CO N MG MP A AN TA Y BL IN ET C MU 51 07 07 22 7 HO 10 FL Ac PI 67 -3 -3 .0 PK 09 OR ti RO 21 0- 0- 00 IN 40 EN ve CI 31 20 20 S 3 CE N [address] 2% 0 UG SA RA OI CO H NT MP L ME AN NT Y IN C [place] 53 07 07 20 10 HO 10 FL Ac LF 48 -3 -3 .0 PK 09 OR ti AM 90 0- 0- 00 IN 40 EN ve ET 14 20 20 S 4 CE HO [address] XA 5 UG SA ZO RA LE CO H -T MP L MP AN Y DS IN C TA BL ET CI 60 06 06 5 30 30 HO 10 BE Ac TA 50 -2 -2 .0 PK 08 SS ti LO 52 8- 8- 00 IN 52 ON ve ID 52 20 20 S 2 AM [address] 1 UG EP HB HE R CO N 40 MP A AN MG Y IN TA C BL ET CL 00 04 06 2 60 30 HO 10 BE Ac ON 18 -2 -2 .0 PK 06 SS ti AZ 50 9- 8- 00 IN 86 ON ve EP 06 20 20 S 6 AM [address] 5 UG EP 0. HE 5 CO N MG MP A AN TA Y BL IN ET C IN 00 06 06 30 10 HO 10 HU Ac DO 09 -0 -0 .0 PK 07 NT ti ME 34 2- 2- 00 IN 88 ER ve TH 02 20 20 S 8 AC [address] NA IN 1 UG NC Y 25 CO C MP MG AN Y CA IN PS C UL E CI 60 12 05 5 30 30 HO 10 BE Ac TA 50 -1 -2 .0 PK 02 SS ti LO 52 0- 8- 00 IN 47 ON ve ID 52 20 20 S 8 AM [address] 1 UG EP HB HE R CO N 40 MP A AN MG Y IN TA C BL ET CL 00 04 05 2 60 30 HO 10 BE Ac ON 18 -2 -2 .0 PK 06 SS ti AZ 50 9- 8- 00 IN 86 ON ve EP 06 20 20 S 6 AM [address] 5 UG EP 0. HE 5 CO N MG MP A AN TA Y BL IN ET C [place] 00 05 05 9. 30 HO 10 BE Ac MA 37 -0 -0 00 PK 07 SS ti TR 85 7- 7- 0 IN 16 ON ve IP 63 20 20 S 6 TA [address] N 9 UG EP [place] HE CC CO N MP A 50 AN Y MG IN C TA BL ET CL 00 04 04 2 60 30 HO 10 BE Ac ON 18 -2 -2 .0 PK 06 SS ti AZ 50 9- 9- 00 IN 86 ON ve EP 06 20 20 S 6 AM [address] 5 UG EP 0. HE 5 CO N MG MP A AN TA Y BL IN ET C CI 60 12 04 5 30 30 HO 10 BE Ac TA 50 -1 -2 .0 PK 02 SS ti LO 52 0- 8- 00 IN 47 ON ve ID 52 20 20 S 8 AM [address] 1 UG EP HB HE R CO N 40 MP A AN MG Y IN TA C BL ET CL 00 03 03 60 30 HO 10 BE Ac ON 18 -1 -1 .0 PK 05 SS ti AZ 50 9- 9- 00 IN 65 ON ve EP 06 20 20 S 7 AM [address] 5 UG EP 0. HE 5 CO N MG MP A AN TA Y BL IN ET C CI 60 12 03 5 30 30 HO 10 BE Ac TA 50 -1 -1 .0 PK 02 SS ti LO 52 0- 6- 00 IN 47 ON ve ID 52 20 20 S 8 AM [address] 1 UG EP HB HE R CO N 40 MP A AN MG Y IN TA C BL ET CI 60 12 02 02 30 30 HO 10 BE Ac TA 50 -1 -2 .0 PK 02 SS ti LO 52 0- 6- 00 IN 47 ON ve ID 52 20 20 S 8 AM [address] CRUZ 1 UG EP HB HE R CO N 40 A IN MG C TA BL ET CL 00 12 02 02 60 30 HO 10 MC Ac ON 18 -1 -2 .0 PK 02 KE ti AZ 50 7- 6- 00 IN 74 CA ve EP 06 20 20 S 9 E AM [address] CAMPOS 5 UG 0. [place] 5 CO LL MG IA IN M TA C F BL ET CI 60 12 01 01 30 30 HO 10 BE Ac TA 50 -1 -2 .0 PK 02 SS ti LO 52 0- 8- 00 IN 47 ON ve ID 52 20 20 S 8 AM [address] CRUZ 1 UG EP HB HE R CO N 40 A IN MG C TA BL ET CL 00 12 01 01 60 30 HO 10 MC Ac ON 18 -1 -2 .0 PK 02 KE ti AZ 50 7- 8- 00 IN 74 CA ve EP 06 20 20 S 9 E AM [address] CAMPOS 5 UG 0. [place] 5 CO LL MG IA IN M TA C F BL ET CL 00 12 12 00 60 30 HO 10 MC Ac ON 18 -1 -3 .0 PK 02 KE ti AZ 50 7- 1- 00 IN 74 CA ve EP 06 20 20 S 9 E AM [address] CAMPOS 5 UG 0. [place] 5 CO LL MG IA IN M TA C F BL ET NO 00 12 12 00 10 10 HO 10 CL Ac RE 55 -0 -1 .0 PK 02 AR ti TH 50 3- 7- 00 IN 25 KE ve IN 21 [address] MCCALL 0 UG RE E K 5 CO J MG IN TA C BL ET CI 60 12 12 00 30 30 HO 10 BE Ac TA 50 -1 -1 .0 PK 02 SS ti LO 52 0- 7- 00 IN 47 ON ve ID 52 20 20 S 8 AM [address] 1 UG EP HB HE R CO N 40 A IN MG C TA BL ET CI 60 07 11 03 30 30 HO 99 BE Ac TA 50 -0 -1 .0 PK 70 SS ti LO 52 6- 9- 00 IN 78 ON ve ID 52 20 20 S AM [address] CRUZ 1 UG EP HB HE R CO N 40 A IN MG C TA BL ET CL 00 10 11 01 60 30 HO 10 BE Ac ON 18 -1 -1 .0 PK 00 SS ti AZ 50 2- 9- 00 IN 29 ON ve EP 06 20 20 S 1 AM [address] CRUZ 5 UG EP 0. HE 5 CO N MG A IN TA C BL ET CL 00 10 10 00 60 30 HO 10 BE Ac ON 18 -1 -2 .0 PK 00 SS ti AZ 50 2- 2- 00 IN 29 ON ve EP 06 20 20 S 1 AM [address] CRUZ 5 UG EP 0. HE 5 CO N MG A IN TA C BL ET ME 00 10 10 00 70 7 HO 99 HU Ac TR 78 -0 -0 .0 PK 99 NT ti ON 17 1- 8- 00 IN 28 ER ve ID 07 20 20 S AZ [address] ROONEY OL 7 UG NC E Y VA CO C GI NA IN L C 0. 75 % GL CL 00 10 10 00 28 14 HO 99 HU Ac ON 18 -0 -0 .0 PK 99 NT ti AZ 50 1- 8- 00 IN 18 ER ve EP 06 20 20 S AM [address] ROONEY 5 UG NC 0. Y 5 CO C MG IN TA C BL ET CI 60 07 09 02 30 30 HO 99 BE Ac TA 50 -0 -1 .0 PK 70 SS ti LO 52 6- 0- 00 IN 78 ON ve ID 52 20 20 S AM [address] CRUZ 1 UG EP HB HE R CO N 40 A IN MG C TA BL ET TE 55 07 08 01 30 30 HO 99 HU Ac RB 11 -1 -2 .0 PK 74 NT ti IN 10 7- 7- 00 IN 33 ER ve AF 25 20 20 S IN [address] ROONEY E 0 UG NC HC Y L CO C 25 0 IN MG C TA BL ET CI 60 07 08 01 30 30 HO 99 BE Ac TA 50 -0 -1 .0 PK 70 SS ti LO 52 6- 3- 00 IN 78 ON ve ID 52 20 20 S AM [address] CRUZ 1 UG EP HB HE R CO N 40 A IN MG C TA BL ET TE 55 07 07 00 30 30 HO 99 HU Ac RB 11 -1 -3 .0 PK 74 NT ti IN 10 7- 0- 00 IN 33 ER ve AF 25 20 20 S IN [address] ROONEY E 0 UG NC HC Y L CO C 25 0 IN MG C TA BL ET CI 60 07 07 00 30 30 HO 99 BE Ac TA 50 -0 -1 .0 PK 70 SS ti LO 52 6- 6- 00 IN 78 ON ve ID 52 20 20 S AM [address] CRUZ 1 UG EP HB HE R CO N 40 A IN MG C TA BL ET CI 60 06 07 00 15 30 HO 99 HU Ac TA 50 -2 -0 .0 PK 67 NT ti LO 52 4- 2- 00 IN 70 ER ve ID 52 20 20 S AM [address] ROONEY 1 UG NC HB Y R CO C 40 IN MG C TA BL ET AZ 64 04 04 00 6. 5 HO 99 HU Ac IT 67 -1 -2 00 PK 48 NT ti HR 90 6- 3- 0 IN 33 ER ve OM 96 20 20 S YC [address] ROONEY IN 5 UG NC Y 25 CO C 0 MG IN C TA BL ET CI 60 02 03 01 15 30 HO 99 CL Ac TA 50 -1 -2 .0 PK 26 AR ti LO 52 0- 6- 00 IN 34 KE ve ID 52 20 20 S AM [address] WINTER 1 UG RE HB K R CO J 40 IN MG C TA BL ET 00 03 03 01 20 5 HO 99 Ac 18 -0 -2 .0 PK 33 LL ti 20 3- 6- 00 IN 05 AF ve 49 20 20 S LO [address] Hollingsworth 0 UG OS IA CO S M IN C 00 03 03 00 21 6 HO 99 Ac 55 -0 -1 .0 PK 33 LL ti 50 3- 2- 00 IN 04 AF ve 30 20 20 S LO 13 09 09 R 8 UG OS IA CO S M IN C 00 03 03 00 20 5 HO 99 Ac 18 -0 -1 .0 PK 33 LL ti 20 3- 2- 00 IN 05 AF ve 49 20 20 S LO [address] Darrick 0 UG OS IA CO S M IN C CI 60 02 02 00 15 30 HO 99 CL Ac TA 50 -1 -2 .0 PK 26 AR ti LO 52 0- 6- 00 IN 34 KE ve ID 52 20 20 S AM [address] DE 1 UG RE HB K R CO J 40 IN MG C TA BL ET AC 00 02 03 00 20 5 SO 27 No Ac ET 40 -0 -2 .0 PE 47 t ti AM 60 4- 6 00 RS 65 Av ve IN 48 20 20 ai OP 41 08 08 FA la HE 0 CA bl N- LY e CO D DR #3 UG TA BL ET 00 02 03 00 12 4 SO 27 No Ac 60 -0 -2 .0 PE 47 t ti 33 4- 6- 00 RS 89 Av ve 88 20 20 ai 23 08 08 FA la 2 CA bl LY e DR UG Procedures Procedure DOS Code Location Performer Comment [facility] [address] [facility] 0 [facility] OTHER [id number] [facility] 0 [facility] Encounters Encounter Start End Date Code Location Performer Type Date [facility] - 2 2 [facility] 1 [facility] - 0 0 [facility] - 0 0 [facility] - 0 0 [facility] - 0 0 [facility] - 0 0 [facility] - 0 0 [facility] - 9 9 [facility] - 9 9 [facility] - 9 9 [facility] - 9 9 [facility]
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
--- OUTSIDE RECORDS SUMMARY | 2017-04-16 16:16 | External Medical Summary Rpt | CCD ---
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 [place] 5 CO LL MG IA IN M TA C F BL ET CI 60 12 12 00 30 30 HO 10 BE Ac TA 50 -1 -1 .0 PK 02 SS ti LO 52 0- 7- 00 IN 47 ON ve IN 52 20 20 S 8 AM [address] 1 UG EP HB HE R CO N 40 A IN MG C TA BL ET NO 00 12 12 00 10 10 HO 10 CL Ac RE 55 -0 -1 .0 PK 02 AR ti TH 50 3- 7- 00 IN 25 KE ve IN 21 [address] WINTER ON 0 UG RE E K 5 CO J MG IN TA C BL ET CI 60 07 11 03 30 30 HO 99 BE Ac TA 50 -0 -1 .0 PK 70 SS ti LO 52 6- 9- 00 IN 78 ON ve IN 52 20 20 S AM [address] 1 UG EP HB HE R CO N 40 A IN MG C TA BL ET CL 00 10 11 01 60 30 HO 10 BE Ac ON 18 -1 -1 .0 PK 00 SS ti AZ 50 2- 9- 00 IN 29 ON ve EP 06 20 20 S 1 AM [address] 5 UG EP 0. HE 5 CO N MG A IN TA C BL ET CL 00 10 10 00 60 30 HO 10 BE Ac ON 18 -1 -2 .0 PK 00 SS ti AZ 50 2- 2- 00 IN 29 ON ve EP 06 20 20 S 1 AM [address] 5 UG EP 0. HE 5 CO N MG A IN TA C BL ET CL 00 10 10 00 28 14 HO 99 HU Ac ON 18 -0 -0 .0 PK 99 NT ti AZ 50 1- 8- 00 IN 18 ER ve EP 06 20 20 S AM [address] ROONEY 5 UG NC 0. Y 5 CO C MG IN TA C BL ET ME 00 10 10 00 70 7 HO 99 HU Ac TR 78 -0 -0 .0 PK 99 NT ti ON 17 1 8- 00 IN 28 ER ve ID 07 20 20 S AZ [address] ROONEY OL 7 UG NC E Y VA CO C GI NA IN L C 0. 75 % GL CI 60 07 09 02 30 30 HO 99 BE Ac TA 50 -0 -1 .0 PK 70 SS ti LO 52 6- 0- 00 IN 78 ON ve IN 52 20 20 S AM [address] 1 UG EP HB HE R CO N 40 A IN MG C TA BL ET TE 55 07 08 01 30 30 HO 99 HU Ac RB 11 -1 -2 .0 PK 74 NT ti IN 10 7- 7- 00 IN 33 ER ve AF 25 20 20 S IN [address] ROONEY E 0 UG NC HC Y L CO C 25 0 IN MG C TA BL ET CI 60 07 08 01 30 30 HO 99 BE Ac TA 50 -0 -1 .0 PK 70 SS ti LO 52 6- 3- 00 IN 78 ON ve IN 52 20 20 S AM [address] 1 UG EP HB HE R CO N 40 A IN MG C TA BL ET TE 55 07 07 00 30 30 HO 99 HU Ac RB 11 -1 -3 .0 PK 74 NT ti IN 10 7- 0- 00 IN 33 ER ve AF 25 20 20 S IN [address] ROONEY E 0 UG NC HC Y L CO C 25 0 IN MG C TA BL ET CI 60 07 07 00 30 30 HO 99 BE Ac TA 50 -0 -1 .0 PK 70 SS ti LO 52 6- 6- 00 IN 78 ON ve IN 52 20 20 S AM [address] CRUZ 1 UG EP HB HE R CO N 40 A IN MG C TA BL ET CI 60 06 07 00 15 30 HO 99 HU Ac TA 50 -2 -0 .0 PK 67 NT ti LO 52 4- 2- 00 IN 70 ER ve IN 52 20 20 S AM 00 09 [...] 0- 6- 00 IN 34 KE ve IN 52 20 20 S AM [address] WINTER 1 UG RE HB K R CO J 40 IN MG C TA BL ET 00 03 03 01 20 5 HO 99 Ac 18 -0 -2 .0 PK 33 LL ti 20 3- 6- 00 IN 05 AF ve 49 20 20 S LO 21 09 09 R 0 UG OS IA CO S M [...] 20 20 S LO 21 09 09 R 0 UG OS IA CO S M IN C CI 60 02 02 00 15 30 HO 99 CL Ac TA 50 -1 -2 .0 PK 26 AR ti LO 52 0- 6- 00 IN 34 KE ve IN 52 20 20 S AM [address] WINTER 1 UG RE HB K R CO J 40 IN MG C TA BL ET AC 00 02 03 00 20 5 SO 27 No Ac ET 40 -0 -2 .0 PE 47 t ti AM 60 4- 6- 00 RS 65 Av ve IN 48 20 20 ai OP 41 08 08 FA la HE 0 NJ bl N- LY e CO D DR #3 UG TA BL ET 00 06 18 99 12 4 SO 27 No Ac 60 -0 -2 .0 PE 47 t ti 33 4- 6- 00 RS 89 Av ve 88 20 20 ai 23 08 08 FA la 2 [place] bl LY e DR UG Procedures Procedure DOS Code Location Performer Comment [facility]STER[facility] [id number] [facility] OPY 0 [facility] INC OTHER [id number] [facility] DILATION 0 [facility] CURETT[facility] OF UTERUS Encounters Encounter Start End Date Code Location Performer Type Date [facility] - 2 2 [facility], - 2 2 [facility] - 2 2 [facility] - 1 1 [facility] - 0 0 [facility] - 0 0 [facility] - 0 0 [facility] - 0 0 [facility] - 0 0 [facility] - 0 0 [facility] - 9 9 [facility] - 9 9 [facility] - 9 9 [facility] - 9 9 [facility]
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
--- OUTSIDE RECORDS SUMMARY | 2017-04-16 16:19 | External Medical Summary Rpt | CCD ---
Author Author , ZELALEM MASTERSON Address Unknown Phone [email or web address] Immunization Name Date Rout CVX Reac Dose Comm Prov Is Faci e tion ent ider Refu lity Give sed n Infl 09-1 Intr 150 0.5 Hist [facility] No [facility] uenz 9-20 amus mL oric ART4 ART4 a 16 cula al 93 93 Quad r Info Inj rmat ion - Sour ce Unsp ecif ied
--- OUTSIDE RECORDS SUMMARY | 2017-04-16 16:19 | External Medical Summary Rpt ---
Author Author ZELALEM Abernathy, [employer] Organization [employer] Address Unknown Phone Unavailable
--- OUTSIDE RECORDS SUMMARY | 2017-04-16 16:19 | External Medical Summary Rpt | CCD ---
Author Author , ZELALEM MASTERSON Address Unknown Phone [email or web address] Immunization Name Date Rout CVX Reac Dose Comm Prov Is Faci e tion ent ider Refu lity Give sed n Infl 09-1 Intr 150 0.5 Hist [facility] No [facility] uenz 9-20 amus mL oric ART4 ART4 a 16 cula al 93 93 Quad r Info Inj rmat ion - Sour ce Unsp ecif ied
--- NOTE | 2017-04-16 16:22 | Urgent Treatment Center Report ---
History of Present Issue Date/Time Seen by Provider 04/16/17 1612 Visit Reason Pt arrived:Walked Presenting Problem:HEADACHE X1 WK Location if Accident: Onset of symptoms date/time:/ or onset unknown for:MEDICAL HX UNKNOWN Have you (or family members/close friends) recently traveled outside the [place]? N If Yes, where/when: Have you had exposure to infectious disease within the past month? TB? Other? Specify: Patient state that she has had a headache on and off for around a week now State that she has a history of headaches State that she has taken several over the counter pain medication IE Tylenol/motrin however they have not helped to relieve the headache and states that she is having some sensitivity to light however denies vision disturbances ALLERGIES Coded Allergies: No Known Allergies (04/16/17) Home Medications Active Scripts Ibuprofen (MOTRIN 400MG) 400 MG PO Q6HP #40 TAB Prov: 04/11/12 Orphenadrine Citrate (Norflex) 100 MG PO BID #14 TER Prov: 04/11/12 Methylprednisolone (Medrol Dose Yomaira) 4 MG PO UD #1 YOMAIRA Prov: 12/28/14 SULFAMETHOXAZOLE/TRIMETHOPRIM (Sulfamethoxazole-Tmp Ds Tablet) 1 TAB PO BID #14 TAB Prov: 12/28/14 Reported Medications Clonazepam (Klonopin) 4 MG PO BID Sertraline Hcl (Zoloft 25MG) 25 MG PO DAILY History Medical History General Angina: No NE: No Hypertension? No Hyperlipidemia? No CHF? No COPD? No Asthma? No Hernia? No CVA? No Seizures? No Diabetes? No UTI? No Stones? No GB Disease: No Hepatitis? No Cataracts? No Glaucoma? No MRSA? No TB? No Cancer? No Immunization HX DT/Tetanus > 10 YRS Flu NEVER Pneumonia NEVER Surgical Hx Previous Surgery?Y X 3 Exp.lap LEEP PROCEDURE REMOVAL CYST FROM [facility] Family History Family HX Diabetes Yes CAD Yes Hypertension No Hyperlipidemia No Cancer No TB No Social History Smoking Hx Smoker: Current Every Day Smoker Tobacco: Yes Type Cigarettes Packs/day 1 1/2 - 2 Packs Alcohol Alcohol: No Review of Systems All Other Systems Reviewed and Negative Eyes denies blindness, denies blurred vision, denies drainage, denies decreased acuity, denies inflammation, denies pain, denies vision change Psychiatric/Neurological headache Physical Exam Vital Signs Vital Signs Date Time Temp Pulse Resp B/P Pulse O2 O2 Flow FiO2 Ox Delivery Rate 04/16 1640 18 04/16 1604 97.9 88 18 125/92 94 General Appearance normal appearance, WD/WN, no apparent distress Eye Exam - bilateral eye normal exam, bilateral eye PERRL, bilateral eye EOMI Respiratory Status Yes: trachea midline, chest symmetrical, non tender chest. No: respiratory distress. Lung Sounds bilateral: normal breath sounds, lungs clear. Cardiovascular normal exam, regular rate/rhythm Neurologic alert, normal exam, oriented x 3 Medical Decision Making LABS/Meds/Orders Pt receiving controlled substance in ED? No Results/Orders Current Medication Orders Sig/[place] Start time Last Medication Dose Route Stop Time Status Admin Metoclopramide HCl 0 .STK-MED ONE 04/16 1631 DC PO Metoclopramide HCl 10 MG ONCE ONE 04/16 1630 DC 04/16 PO 04/16 1631 1639 Diphenhydramine HCl 0 .STK-MED ONE 04/16 1628 DC .ROUTE Ketorolac 0 .STK-MED ONE 04/16 1628 DC Tromethamine .ROUTE Diphenhydramine HCl 50 MG ONCE ONE 04/16 1615 DC / IM 04/16 1616 1640 Ketorolac 60 MG ONCE ONE 04/16 1615 DC / Tromethamine IM 04/16 1616 1640 Progress [facility] Progress Notes Comment Patient states that headache is much better and almost gone after the medication Departure Departure Time of Disposition 1657 Disposition DC Home or Self Care(routine) Clinical Impression Primary Impression: Headache Qualifiers: Headache type: unspecified Headache chronicity pattern: unspecified pattern Intractability: intractable Qualified Code: R51 - Headache Condition STABLE Referrals Family doctor Patient Instructions DI for Headache Additional Instructions Follow up with family doctor Return if needed Go home lay down and try to sleep headache off If pain persists or you began to have vision disturbances go straight to the ER Discharge Counseling Counseled pt/family regarding diagnosis, medications/RX, home care, follow up needs Prescriptions Current Visit Scripts Diphenhydramine Hcl (Benadryl 50MG Cap) 50 MG PO Q6H PRN #20 CAP at [id number]
[2017-04-16] MEDS ORDERED: BENADRYL 50MG C50 MG PO (16:59)
[2017-04-16 17:03] VITALS: BP 122/88
== END 2017-04-16 17:04 | disposition home or self-care (01) ==
LOC: ER 15:51 → UTC 15:56
DX: R51 Headache (principal)